=== PATIENT | male | born 1945 | race Caucasian/White ===

== ENCOUNTER → 2016-06-30 | Outpatient (CLI) | payer OTHER | LOC: FIMAGING 14:31 | PROVIDERS: ATTEND Physician Assistant | DX: M47.812 Spondylosis without myelopathy or radiculopathy, cervical region (principal); M43.17 Spondylolisthesis, lumbosacral region; M48.06 Spinal stenosis, lumbar region; M54.5 Low back pain; M54.2 Cervicalgia; M50.30 Other cervical disc degeneration, unspecified cervical region; M50.221 Other cervical disc displacement at C4-C5 level; Z98.1 Arthrodesis status ==

== ENCOUNTER 2018-01-22 06:28 | Day surgery (SDC) | payer OTHER ==
[2018-01-22] MEDS ORDERED: ATROPINE SULFATE 1 MG/10 ML SYR IVP ONE (06:31)
[2018-01-22] MEDS ORDERED: NS 1,000 ML IV ONE (06:31)
[2018-01-22 07:20] LABS: INR 1.47 (0.83-1.16)
[2018-01-22] MEDS ORDERED: LIDOCAINE 2% 2 ML INJ ONE (08:05)
[2018-01-22] MEDS ORDERED: PROPOFOL 200 MG/20 ML VIAL ONE (08:05)
--- NOTE | 2018-01-22 08:05 | PDHPUP ---
History & Physical Update H&P update statement: This history and physical update is based on an assessment of the patient which was completed after admission or registration (within 24 hours), but prior to the surgery/procedure. H&P update: H&P reviewed & patient examined, no change in patient's condition since H&P completed
--- NOTE | 2018-01-22 08:26 | PDANEPAE ---
ANE History of Present Illness jazlyn/cv ANE Past Medical History - Cardiovascular History Hx Hypertension: No Hx Arrhythmias: Yes Hx Chest Pain: No Hx Coronary Artery / Peripheral Vascular Disease: No Hx CHF / Valvular Disease: Yes Hx Palpitations: Yes - Pulmonary History Hx COPD: No Hx Asthma/Reactive Airway Disease: No Hx Recent Upper Respiratory Infection: No Hx Oxygen in Use at Home: No Hx Sleep Apnea: No - Neurologic History Hx Cerebrovascular Accident: No Hx Seizures: No Hx Dementia: No - Endocrine History Hx Diabetes: No Hypothyroid: No Hyperthyroid: No Obesity: no - Renal History Hx Renal Disorders: No - Liver History Hx Hepatic Disorders: No ANE Review of Systems Review of Systems: - Exercise capacity Exercise capacity: >=4 METS ANE Patient History - Allergies Allergies/Adverse Reactions: Penicillins Allergy (Severe, Verified 01/19/18 15:15) Hives bupropion Allergy (Intermediate, Verified 01/19/18 15:15) - Home Medications Home medications: home medication list seen and reviewed Home Medications: Acetaminophen [Tylenol 325mg (*)] 325 mg PO DAILY PRN 12/14/15 [Last Taken Unknown] Albuterol [Proventil Inhaler HFA (*)] 1 - 2 puffs IH DAILY PRN 12/14/15 [Last Taken Unknown] Ketotifen Fumarate [Zaditor] 1 drop EACHEYE BID 12/14/15 [Last Taken Unknown] Ranitidine HCl [Zantac 75] 75 mg PO BID 12/14/15 [Last Taken 12/14/15] Triamcinolone 0.1% [Triamcinolone 0.1% Cream (*)] 1 jose a TP DAILY PRN 12/14/15 [ Last Taken 12/14/15] oxyCODONE IR [Oxycodone Ir (*)] 5 - 10 mg PO DAILY PRN 12/14/15 [Last Taken ] Fluticasone Hfa 220 Mcg [Flovent 220 MCG Hfa MDI (*)] 1 puffs IH BID 12/15/15 [ Last Taken Unknown] - NPO status NPO Status: no food or drink >8 hours - Smoking Hx Smoking Status: Former smoker ANE Labs/Vital Signs - Labs Result Diagrams: 01/22/18 06:50 - Vital Signs Height: 178 cm Weight: 69.9 kg ANE Physical Exam - Airway Mallampati Score: Class 2 Mouth exam: normal dental/mouth exam - Pulmonary Pulmonary: no respiratory distress - Cardiovascular Cardiovascular: irregularly irregular - ASA Status ASA Status: II ANE Anesthesia Plan Anesthesia Plan: GA with mask
--- NOTE | 2018-01-22 08:27 | POSTANESTH ---
Post Anesthetic Evaluation Cardiovascular Status: Normal, Stable Respiratory Status: Normal, Stable Level of Consciousness/Mental Status: Can Participate in Eval Pain Control: Adequate, Prn Tx Ordered Nausea/Vomiting Control: Adequate, Prn Tx Ordered Complications Possibly Related to Anesthesia: None Noted
--- NOTE | 2018-01-22 08:36 | PDCARTEE ---
CAR CECILLE CAR CECILLE: PROCEDURE: (1) Sedation (2) CECILLE (3) Possible cardioversion INDICATION: (1) Atrial fibrillation with Amyloid and moderate to severe mitral regurgitation FINDINGS: Risks and benefits of the procedures were discussed with the patient. Time out was performed before sedation started. Anesthesia was induced without issues, and CECILLE probe was placed without difficulty. Standard views were obtained. 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 Would recommend a minimum of Eliquis therapy for 7-14 days prior to repeat CECILLE with possible cardioversion The patient did very well for this procedure. No complications were appreciated. Spoke with about the results noted. Outpatient follow up with cardiology in 1 week
--- NOTE | 2018-01-22 16:38 | CPEKG ---
Test Reason : OPEN Blood Pressure : / mmHG Vent. Rate : 113 BPM Atrial Rate : 000 BPM P-R Int : 135 ms QRS Dur : 100 ms QT Int : 338 ms P-R-T Axes : 000 -42 150 degrees QTc Int : 464 ms Atrial fibrillation Low voltage, extremity leads Nonspecific ST abnormality Confirmed by Shawn Betancur ([id number]) on 01/22/2018 4:37:48 PM Referred By: Confirmed By:Shawn Betancur
== END 2018-01-22 09:59 | disposition home or self-care (01) ==
LOC: FCATH 06:28
PROVIDERS: ATTEND Internal Medicine Cardiovascular Disease
PROC: B246ZZ4 Ultrasonography of Right and Left Heart, Transesophageal (ICD-10-PCS; principal; 2018-01-22)
DX: I48.91 Unspecified atrial fibrillation (principal); Z53.09 Procedure and treatment not carried out because of other contraindication; I51.3 Intracardiac thrombosis, not elsewhere classified; E85.4 Organ-limited amyloidosis; I43 Cardiomyopathy in diseases classified elsewhere; I50.32 Chronic diastolic (congestive) heart failure; I34.0 Nonrheumatic mitral (valve) insufficiency; Z87.891 Personal history of nicotine dependence
CPT/HCPCS: J2704

== ENCOUNTER 2018-02-21 06:22 | Day surgery (SDC) | payer OTHER, MEDICARE ==
[2018-02-21] MEDS ORDERED: MIDAZOLAM 2 MG/2 ML VIAL IVP ONE (06:24)
[2018-02-21] MEDS ORDERED: BENZOCAINE UNIT DOSE SPRAY HURRICAINE MM ONE (06:24)
[2018-02-21] MEDS ORDERED: fentaNYL 100 MCG/2 ML INJ IVP ONE (06:24)
[2018-02-21] MEDS ORDERED: NS 500 ML IV ONE (06:24)
[2018-02-21] MEDS ORDERED: ATROPINE SULFATE 1 MG/10 ML SYR IVP ONE (06:24)
[2018-02-21 07:31] LABS: INR 1.48 (0.83-1.16); PROTIME(PATIENT) 18.1 SEC (12.0-15.0)
--- NOTE | 2018-02-21 07:48 | PDANEPAE ---
ANE History of Present Illness h/o afib, here for CECILLE/cardioversion ANE Past Medical History - Cardiovascular History Hx Hypertension: No Hx Arrhythmias: Yes Hx Chest Pain: No Hx Coronary Artery / Peripheral Vascular Disease: No Hx CHF / Valvular Disease: Yes Hx Palpitations: Yes - Pulmonary History Hx COPD: No Hx Asthma/Reactive Airway Disease: No Hx Recent Upper Respiratory Infection: No Hx Oxygen in Use at Home: No Hx Sleep Apnea: No - Neurologic History Hx Cerebrovascular Accident: No Hx Seizures: No Hx Dementia: No - Endocrine History Hx Diabetes: No - Renal History Hx Renal Disorders: No - Liver History Hx Hepatic Disorders: No ANE Review of Systems Review of Systems: ANE Patient History - Allergies Allergies/Adverse Reactions: Penicillins Allergy (Severe, Verified 01/19/18 15:15) Hives bupropion Allergy (Intermediate, Verified 01/19/18 15:15) - Home Medications Home Medications: Acetaminophen [Tylenol 325mg (*)] 325 mg PO DAILY PRN 12/14/15 [Last Taken Unknown] Albuterol [Proventil Inhaler HFA (*)] 1 - 2 puffs IH DAILY PRN 12/14/15 [Last Taken 02/12/18 08:00] Ketotifen Fumarate [Zaditor] 1 drop EACHEYE BID 12/14/15 [Last Taken Unknown] Ranitidine HCl [Zantac 75] 75 mg PO BID 12/14/15 [Last Taken 12/14/15] Triamcinolone 0.1% [Triamcinolone 0.1% Cream (*)] 1 jose a TP DAILY PRN 12/14/15 [ Last Taken 02/20/18 19:00] oxyCODONE IR [Oxycodone Ir (*)] 5 - 10 mg PO DAILY PRN 12/14/15 [Last Taken 03/10 19:00] Fluticasone Hfa 220 Mcg [Flovent 220 MCG Hfa MDI (*)] 1 puffs IH BID 12/15/15 [ Last Taken Unknown] Eliquis 5 mg PO BID 02/21/18 [Last Taken 02/21/18 05:30] Tafamidis 61.5 mg PO DAILY 02/21/18 [Last Taken 02/20/18 08:00] Torsemide 80 mg PO DAILY 02/21/18 [Last Taken 02/20/18 08:00] - Smoking Hx Smoking Status: Former smoker ANE Labs/Vital Signs - Labs Result Diagrams: 02/21/18 06:35 - Vital Signs Height: 180 cm Weight: 68 kg ANE Physical Exam - Airway Neck exam: FROM Mallampati Score: Class 1 Mouth exam: normal dental/mouth exam - Pulmonary Pulmonary: no respiratory distress - Cardiovascular Cardiovascular: irregularly irregular - ASA Status ASA Status: III ANE Anesthesia Plan Anesthesia Plan: GA with mask Total IV Anesthesia: Yes
[2018-02-21] MEDS ORDERED: PROPOFOL 200 MG/20 ML VIAL ONE (08:06)
--- NOTE | 2018-02-21 08:35 | PDHPUP ---
History & Physical Update H&P update statement: This history and physical update is based on an assessment of the patient which was completed after admission or registration (within 24 hours), but prior to the surgery/procedure. H&P update: H&P reviewed & patient examined, no change in patient's condition since H&P completed H&P changes: Patient still in atrial fibrillation. On Eliquis
[2018-02-21] MEDS ORDERED: NALOXONE HCL 0.4 MG/ML INJ IVP PRN (08:39)
--- NOTE | 2018-02-21 08:46 | PDTEE1 ---
CECILLE Cardioversion Procedure Procedure: electrical cardioversion, transesophageal echo Indications: atrial fibrillation Consent: signed and in chart Anticoagulation: eliquis Procedural Details: After procedure details were discussed with patient and , and anesthesia consents were signed, patient was placed in the left lateral position. Anesthesia was induced without difficulty. CECILLE probe was placed without difficulty and standard images were obtained. Preliminary report (1) Grossly normal LVEF (2) Moderate LVH (3) Biatrial enlargement (moderate) (4) Moderate/severe MR (5) Trileaflet aortic valve with trace AI (6) Mod TR (7) Grossly normal Pulmonic valve (8) Smoke was noted in the atria (9) No thrombus was appreciated to the DES (10) Minimal atheroma to the descending aorta. A single synchronized 200 J shock was performed with conversion of atrial fibrillation from 130-135 bpm to normal sinus rhythm at 90 bpm ECG was performed Patient recovered without incident. Synchronized cardioversion attempt #1: 200J Results: normal sinus rhythm Conclusions: successful CECILLE cardioversion Conclusion Comment: normal sinus rhythm Patient Problems: Problems Problem Status Onset ACS (acute coronary syndrome) Acute Elevated brain natriuretic peptide (BNP) level Acute Elevated troponin Acute Lower extremity edema Acute Shortness of breath Acute
--- NOTE | 2018-02-21 14:48 | ECHO ---
[email or web address] [address] [address] Main: [phone] Fax: Transesophageal Echocardiography Name: XIOMARA ROBERSON MR#: [id number] Study Date: 02/21/2018 Study Time: 07:35 AM Date of : 1945 Age: 72 year(s) Height: ( ) Weight: ( ) BSA: Gender: Male Examination: CECILLE Indication: Eval DES pre cardioversion Image Quality: Adequate Contrast: Requested by: Carlyle Gilbert Heart Rate: Rhythm: BP: / Procedure Staff Handicapper [employer]: Irais Juárez SHARON Reading Physician: Carlyle Gilbert MD Requesting Provider: CECILLE Exam Details Conclusions: The ejection fraction is estimated to be 50-55 %. 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 Dilated left atrium with spontaneous contrast. The left atrial appendage is unilobular. Slight color flow doppler in the left atrial appendage. No thrombus in left appendage. Spontaneous contrast is present in the left atrial appendage. Dilated right atrium. The mitral valve is normal in appearance. Moderate to severe mitral regurgitation. The aortic valve is tri-leaflet. Mild aortic valve regurgitation is present. The tricuspid valve appears normal. Moderate tricuspid regurgitation is present. Trivial pulmonic valve regurgitation. Trivial anterior pericardial effusion. Measurements: Chambers Valvular Assessment AV/MV Valvular Assessment TV/PV Normal Normal Normal Name Value Range Name Value Range Name Value Range EF Range: 50-55 % Additional Measurements: Patient: XIOMARA ROBERSON Study Date: 02/21/2018 Page 1 of 2 07:35 AM Findings: Left Ventricle: The ejection fraction is estimated to be 50-55 %. 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 Left Atrium: Dilated left atrium with spontaneous contrast. Left Atrial Appendage: The left atrial appendage is unilobular. Slight color flow doppler in the left atrial appendage. No thrombus in left appendage. Spontaneous contrast is present in the left atrial appendage. Right Atrium: Dilated right atrium. Mitral Valve: The mitral valve is normal in appearance. Moderate to severe mitral regurgitation. No mitral stenosis is present. Aortic Valve: The aortic valve is tri-leaflet. Mild aortic valve regurgitation is present. No aortic valve stenosis is present. Tricuspid Valve: The tricuspid valve appears normal. Moderate tricuspid regurgitation is present. Pulmonic Valve: The pulmonic valve is normal in appearance and function. Trivial pulmonic valve regurgitation. Aorta: Mild plaque seen. Pericardium: Trivial anterior pericardial effusion. l1n (No Signature Object) Patient: XIOMARA ROBERSON Study Date: 02/21/2018 Page 2 of 2 07:35 AM [id number]
--- NOTE | 2018-02-21 15:48 | CPEKG ---
Test Reason : OPEN Blood Pressure : / mmHG Vent. Rate : 105 BPM Atrial Rate : 000 BPM P-R Int : 271 ms QRS Dur : 096 ms QT Int : 377 ms P-R-T Axes : 000 -55 000 degrees QTc Int : 499 ms Atrial fibrillation Low voltage, extremity leads Nonspecific T abnrm, anterolateral leads Borderline prolonged QT interval Confirmed by Carlyle Gilbert ([id number]) on 02/21/2018 3:48:26 PM Referred By: Confirmed By:Carlyle Gilbert
--- NOTE | 2018-02-21 15:51 | CPEKG ---
Test Reason : OPEN Blood Pressure : / mmHG Vent. Rate : 090 BPM Atrial Rate : 089 BPM P-R Int : 200 ms QRS Dur : 097 ms QT Int : 422 ms P-R-T Axes : 082 -54 000 degrees QTc Int : 517 ms Sinus rhythm Ventricular premature complex Low voltage, extremity leads Prolonged QT interval Confirmed by Carlyle Gilbert ([id number]) on 02/21/2018 3:50:48 PM Referred By: Confirmed By:Carlyle Gilbert
== END 2018-02-21 09:52 | disposition home or self-care (01) ==
LOC: FCATH 06:22
PROVIDERS: ATTEND Internal Medicine Cardiovascular Disease
PROC: 5A2204Z Restoration of Cardiac Rhythm, Single (ICD-10-PCS; principal; 2018-02-21)
PROC: B245ZZ4 Ultrasonography of Left Heart, Transesophageal (ICD-10-PCS; principal; 2018-02-21)
DX: I48.91 Unspecified atrial fibrillation (principal); Z87.891 Personal history of nicotine dependence
CPT/HCPCS: J2704

== ENCOUNTER → 2018-02-28 | Outpatient (CLI) | payer OTHER, MEDICARE | LOC: FIMAGING 15:57 | PROVIDERS: ATTEND Physician Assistant | DX: J90 Pleural effusion, not elsewhere classified (principal); M51.34 Other intervertebral disc degeneration, thoracic region; M48.04 Spinal stenosis, thoracic region ==

== ENCOUNTER → 2018-04-06 | Outpatient (CLI) | payer OTHER, MEDICARE ==
[~2018-04-06] MED LIST: LIDOCAINE 1% 300 MG/30 ML SDV ONE
== END ==
LOC: FIMAGING 13:37
DX: Z87.09 Personal history of other diseases of the respiratory system (principal)

== ENCOUNTER 2018-05-01 12:31 | Day surgery (SDC) | payer OTHER, MEDICARE ==
[2018-05-01] MEDS ORDERED: ATROPINE SULFATE 1 MG/10 ML SYR IVP ONE (13:00)
[2018-05-01] MEDS ORDERED: NS 1,000 ML IV ONE (13:00)
[2018-05-01 13:40] LABS: INR 1.81 (0.83-1.16); PROTIME(PATIENT) 20.1 SEC (12.0-15.0)
[2018-05-01] MEDS ORDERED: PROPOFOL 200 MG/20 ML VIAL ONE (14:11)
[2018-05-01] MEDS ORDERED: LIDOCAINE 1% 5 ML SDV ONE (14:11)
--- NOTE | 2018-05-01 14:13 | POSTANESTH ---
Post Anesthetic Evaluation Cardiovascular Status: Normal, Stable Respiratory Status: Normal, Stable Level of Consciousness/Mental Status: Can Participate in Eval, Mildly Sleepy, Arousable Pain Control: Adequate, Prn Tx Ordered Nausea/Vomiting Control: Adequate, Prn Tx Ordered Complications Possibly Related to Anesthesia: None Noted
--- NOTE | 2018-05-01 14:16 | PDANEPAE ---
ANE History of Present Illness 72 yo male with AFib for CV. ANE Past Medical History - Cardiovascular History Hx Hypertension: No Hx Arrhythmias: Yes Hx Chest Pain: No Hx Coronary Artery / Peripheral Vascular Disease: No Hx CHF / Valvular Disease: Yes Hx Palpitations: Yes Cardiovascular History Comment: AFib - Pulmonary History Hx COPD: No Hx Asthma/Reactive Airway Disease: No Hx Recent Upper Respiratory Infection: No Hx Oxygen in Use at Home: No Hx Sleep Apnea: No - Neurologic History Hx Cerebrovascular Accident: No Hx Seizures: No Hx Dementia: No - Endocrine History Hx Diabetes: No Hypothyroid: No Hyperthyroid: No Obesity: no - Renal History Hx Renal Disorders: No - Liver History Hx Hepatic Disorders: No - GI History Hx Gastrointestinal Disorders: No ANE Review of Systems Review of systems is: negative Review of Systems: ANE Patient History - Allergies Allergies/Adverse Reactions: Penicillins Allergy (Severe, Verified 01/19/18 15:15) Hives bupropion Allergy (Intermediate, Verified 01/19/18 15:15) - Home Medications Home Medications: Acetaminophen [Tylenol 325mg (*)] 325 mg PO DAILY PRN 12/14/15 [Last Taken Unknown] Albuterol [Proventil Inhaler HFA (*)] 1 - 2 puffs IH DAILY PRN 12/14/15 [Last Taken 02/12/18 08:00] Ketotifen Fumarate [Zaditor] 1 drop EACHEYE BID 12/14/15 [Last Taken Unknown] Ranitidine HCl [Zantac 75] 75 mg PO BID 12/14/15 [Last Taken 12/14/15] Triamcinolone 0.1% [Triamcinolone 0.1% Cream (*)] 1 jose a TP DAILY PRN 12/14/15 [ Last Taken 02/20/18 19:00] oxyCODONE IR [Oxycodone Ir (*)] 5 - 10 mg PO DAILY PRN 12/14/15 [Last Taken 03/10 19:00] Fluticasone Hfa 220 Mcg [Flovent 220 MCG Hfa MDI (*)] 1 puffs IH BID 12/15/15 [ Last Taken Unknown] Eliquis 5 mg PO BID 02/21/18 [Last Taken 02/21/18 05:30] Tafamidis 61 mg PO DAILY 02/21/18 [Last Taken 02/20/18 08:00] Torsemide 80 mg PO DAILY 02/21/18 [Last Taken 02/20/18 08:00] - NPO status NPO Since - Liquids (Date): 05/01/18 NPO Since - Liquids (Time): 10:00 (tea) NPO Since - Solids (Date): 04/30/18 NPO Since - Solids (Time): 00:00 - Anes Hx Anes Hx: no prior problems - Smoking Hx Smoking Status: Former smoker ANE Labs/Vital Signs - Labs Result Diagrams: 05/01/18 12:55 - Vital Signs Vital Signs: reviewed preoperatively; see RN documention for details Height: 180.34 cm Weight: 63.957 kg ANE Physical Exam - Airway Neck exam: FROM Mallampati Score: Class 2 Mouth exam: normal dental/mouth exam - Pulmonary Pulmonary: clear to auscultation - Cardiovascular Cardiovascular: irregularly irregular - ASA Status ASA Status: III ANE Anesthesia Plan Anesthesia Plan: GA with mask Total IV Anesthesia: Yes
--- NOTE | 2018-05-01 14:40 | PDCARD ---
Cardioversion Procedure Procedure: electrical cardioversion without need for CECILLE given long standing therapy on Eliquis Indications: atrial fibrillation Consent: signed and in chart Anticoagulation: eliquis Procedural Details: After consent for both anesthesia and cardioversion were signed and in the chart , Time Out was performed. Heart rate, blood pressure, respiratory rate, and pulse oximetry were monitored. Pads were placed in anterior-posterior position. Anesthesia induced moderate sedation, and cardioversion was performed. Synchronized cardioversion attempt #1: 200J Results: normal sinus rhythm Conclusions: successful cardioversion Conclusion Comment: Outpatient follow up with cardiology has been scheduled. Patient Problems: Problems Problem Status Onset ACS (acute coronary syndrome) Acute Elevated brain natriuretic peptide (BNP) level Acute Elevated troponin Acute Lower extremity edema Acute Shortness of breath Acute
[2018-05-01] MEDS ORDERED: ALBUTEROL 3 ML DEYVIAL IH PRN (14:42)
[2018-05-01] MEDS ORDERED: NALOXONE HCL 0.4 MG/ML INJ IVP PRN (14:42)
--- NOTE | 2018-05-04 11:42 | CPEKG ---
Test Reason : OPEN Blood Pressure : / mmHG Vent. Rate : 086 BPM Atrial Rate : 000 BPM P-R Int : 280 ms QRS Dur : 111 ms QT Int : 411 ms P-R-T Axes : 000 -64 000 degrees QTc Int : 492 ms Atrial fibrillation HAS REPLACED SINUS RHYTHM Low voltage, extremity leads Abnrm T, consider ischemia, anterolateral lds Confirmed by Ben Rangel ([id number]) on 05/04/2018 11:42:23 AM Referred By: Carlyle Gilbert Confirmed By:Ben Rangel
--- NOTE | 2018-05-04 18:51 | CPEKG ---
Test Reason : OPEN Blood Pressure : / mmHG Vent. Rate : 077 BPM Atrial Rate : 077 BPM P-R Int : 218 ms QRS Dur : 106 ms QT Int : 435 ms P-R-T Axes : 084 -66 000 degrees QTc Int : 493 ms Sinus rhythm Borderline prolonged MN interval Low voltage, extremity leads Nonspecific T abnrm, anterolateral leads Borderline prolonged QT interval Confirmed by Ben Rangel ([id number]) on 05/04/2018 6:50:47 PM Referred By: Carlyle Gilbert Confirmed By:Ben Rangel
== END 2018-05-01 16:01 | disposition home or self-care (01) ==
LOC: FIMAGING 12:31
PROVIDERS: ATTEND Internal Medicine Cardiovascular Disease
PROC: 5A2204Z Restoration of Cardiac Rhythm, Single (ICD-10-PCS; principal; 2018-05-01)
DX: I48.91 Unspecified atrial fibrillation (principal); E85.4 Organ-limited amyloidosis; I43 Cardiomyopathy in diseases classified elsewhere; R53.83 Other fatigue; I50.32 Chronic diastolic (congestive) heart failure; I44.7 Left bundle-branch block, unspecified; Z87.891 Personal history of nicotine dependence
CPT/HCPCS: J2704

== ENCOUNTER → 2018-05-23 | Outpatient (CLI) | payer OTHER, MEDICARE | LOC: BHLMT 13:00 ==

== ENCOUNTER → 2018-06-19 | Outpatient (CLI) | payer OTHER, MEDICARE | LOC: FIMAGING 10:37 | PROVIDERS: ATTEND Nurse Practitioner Adult Health | DX: J90 Pleural effusion, not elsewhere classified (principal); J98.11 Atelectasis; I51.7 Cardiomegaly ==